=== PATIENT | female | born 1940 | race Caucasian/White ===

== ENCOUNTER 2025-04-16 07:55 | Day surgery (SDC) | payer MEDICARE, BC, SELFPAY ==
[2025-04-15 12:40] VITALS: BMI 29.0
[2025-04-16] VITALS (11 sets, daily range): BP systolic 135–197; BP diastolic 64–87; PULSE 60–75; RESP 15–20; TEMP 37.1–37.2; O2SAT 96–99; BMI 28.0
[2025-04-16] MEDS: SODIUM CHLORIDE 0.9% 500 ML 500 ML 20 ML IV (08:20)
[2025-04-16] MEDS: Ampicillin Inj 2,000 MG in SODIUM CHLORIDE 0.9% (POP) 100 ML 200 MG IV (08:20)
[2025-04-16] MEDS: GENTAMICIN/NS 80 MG IVPB 80 MG in PRE-MIXED 1 BAG 50 MG IV (09:09)
[2025-04-16] MEDS: MIDAZOLAM INJ 1 MG/ML VIAL 2 ML (ASD USE ONLY) 2 MG IVP (09:58)
[2025-04-16] MEDS: fentaNYL CIT INJ 50 mCg/ML AMP 2ML (ASD USE ONLY) IVP (09:58)
== END 2025-04-16 10:45 | disposition home or self-care (01) ==
PROVIDERS: PCP Family Medicine; Referring Provider Specialist; Visit Provider Specialist
PROC: 0DBE8ZX Excision of Large Intestine, Via Natural or Artificial Opening Endoscopic, Diagnostic (ICD-10-PCS; CPT 45380; principal; 2025-04-16 09:00)
DX: R93.3 Abnormal findings on diagnostic imaging of other parts of digestive tract (principal); K62.89 Other specified diseases of anus and rectum; K64.1 Second degree hemorrhoids; K57.30 Diverticulosis of large intestine without perforation or abscess without bleeding; I10 Essential (primary) hypertension; Z79.899 Other long term (current) drug therapy; Z95.0 Presence of cardiac pacemaker
CPT/HCPCS: 45380; A4649; J0290; J1200; J1580; J2250; J3010; J7999